=== PATIENT | female | born 1990 | race Caucasian/White ===

== ENCOUNTER 2016-10-27 14:24 | Emergency (ER) | payer OTHER, SELFPAY ==
[2016-10-27] MEDS ORDERED: TORAdol 30 mg Injection IM ONE (14:44)
[2016-10-27] MEDS ORDERED: NORCO 5/325 MG PO ONE (14:44)
[2016-10-27] MEDS ORDERED: Augmentin 875-125 Tablet PO ONE (14:44)
--- NOTE | 2016-10-27 14:50 | ERPHSYRPT ---
- History of Present Illness Time Seen by Provider: 10/27/16 14:40 Source: patient Exam Limitations: no limitations Physician History: 26 y/o female comes to the ER with a 2 day history of left upper tooth pain with swelling of the jaw for the past 2 days. Pt describes the pain as sharp, constant, 10/10, with radiation up the jaw and not relieved by tylenol and ibuprofen. Pt denies any fever or chills. Timing/Duration: gradual onset Severity: severe ENT Location: dental Prearrival Treatment: over the counter meds Modifying Factors: Improves With: nothing Allergies/Adverse Reactions: No Known Drug Allergies Allergy (Verified 05/27/16 11:58) Home Medications: Buspirone HCl [Buspar] 10 mg PO TID 05/27/16 [History] Cetirizine HCl [Zyrtec] 10 mg PO DAILY 05/27/16 [History] Hx Tetanus, Diphtheria Vaccination/Date Given: Yes (unknown) Hx Influenza Vaccination/Date Given: No Hx Pneumococcal Vaccination/Date Given: No - Review of Systems Constitutional: No Fever, No Chills Eyes: No Symptoms Ears, Nose, & Throat: No Symptoms, Mouth Pain, Painful Swallowing Respiratory: No Cough, No Dyspnea Cardiac: No Chest Pain, No Edema, No Syncope Abdominal/Gastrointestinal: No Abdominal Pain, No Nausea, No Vomiting, No Diarrhea Genitourinary Symptoms: No Dysuria Musculoskeletal: No Back Pain, No Neck Pain Skin: No Rash Neurological: No Dizziness, No Focal Weakness, No Sensory Changes Psychological: No Symptoms Endocrine: No Symptoms All Other Systems: Reviewed and Negative - Past Medical History Pertinent Past Medical History: Yes Neurological History: No Pertinent History ENT History: No Pertinent History Cardiac History: No Pertinent History Respiratory History: Asthma Endocrine Medical History: No Pertinent History Musculoskeletal History: No Pertinent History GI Medical History: GERD History: No Pertinent History Psycho-Social History: Bipolar Female Reproductive Disorders: No Pertinent History - Past Surgical History Past Surgical History: Yes Neuro Surgical History: No Pertinent History Cardiac: No Pertinent History Respiratory: No Pertinent History Gastrointestinal: No Pertinent History Genitourinary: No Pertinent History Musculoskeletal: No Pertinent History Female Surgical History: Lumpectomy - Social History Smoking Status: Never smoker Exposure to second hand smoke: No Drug Use: none Patient Lives Alone: No - Female History Hx Now: No - Physical Exam General Appearance: no apparent distress, alert Eye Exam: bilateral eye: PERRL, EOMI Nasal Exam: normal inspection Throat Exam: pharynx normal, dental tenderness, mandibular swelling, moist mucus membranes, No tonsillar exudate Neck Exam: supple Cardiovascular/Respiratory Exam: normal breath sounds, regular rate/rhythm Abdominal Exam: non-tender, soft Neurologic Exam: alert, oriented x 3, sensation nml, No motor deficits Skin Exam: normal color, warm, dry Ordered Tests: Medication Summary Generic Name Dose Route Start Last Admin Trade Name Freq PRN Reason Stop Dose Admin Acetaminophen/Hydrocodone Bitart 1 tab 10/27/16 14:44 [place] 5/325 Mg PO 10/27/16 14:45 STAT ONE Amoxicillin/Clavulanate Potassium 875 mg 10/27/16 14:44 Augmentin 875-125 Tablet PO 10/27/16 14:45 STAT ONE Ketorolac Tromethamine 60 mg 10/27/16 14:44 Toradol 30 Mg Injection IM 10/27/16 14:45 STAT ONE - Progress Progress: improved Progress Note: 10/27/16 14:47 Pt will be d/c home on toradol, norco and augmentin for tooth infection - Departure Time of Disposition: 14:47 Departure Disposition: Home Clinical Impression: Tooth infection Condition: Stable Critical Care Time: No Instructions: Tooth Decay Additional Instructions: Follow up with your dentist on Sunday for further management. Prescriptions: Hydrocodone Bit/Acetaminophen [[place] 5-325 Tablet] 1 each PO Q6H PRN PRN #10 tablet PRN Reason: Severe Pain Ketorolac Tromethamine [Toradol] 10 mg PO Q6H PRN PRN #20 tablet PRN Reason: Pain Amoxicillin/Potassium Clav [Augmentin 875-125 Tablet] 875 mg PO BID #19 tablet
[2016-10-27] MEDS ORDERED: TORAdol 30 mg Injection ONE (14:58)
[2016-10-27] MEDS ORDERED: Augmentin 875-125 Tablet ONE (14:58)
[2016-10-27] MEDS ORDERED: NORCO 5/325 MG ONE (14:59)
[2016-10-27 15:18] VITALS: BP 127/70; PULSE 76; O2SAT 100
== END 2016-10-27 15:18 | disposition home or self-care (01) ==
LOC: ED 14:24
DX: K04.7 Periapical abscess without sinus (principal)
CPT/HCPCS: 96372; 99283; J1885

== ENCOUNTER 2016-10-28 11:19 | Emergency (ER) | payer OTHER, SELFPAY ==
[2016-10-28] MEDS ORDERED: TORAdol 30 mg Injection IM ONE (11:38)
--- NOTE | 2016-10-28 11:38 | ERPHSYRPT ---
- History of Present Illness Time Seen by Provider: 10/28/16 11:35 Source: patient Exam Limitations: no limitations Patient Subjective Stated Complaint: patient had tooth pulled having pain Triage Nursing Assessment: delta went to dentist thisd morning had tooth pulled and doctor didn ot give her anything shes in extreme pain Physician History: patient had tooth pulled having pain, swollen left side of jaw Timing/Duration: today Severity: moderate Associated Symptoms: denies symptoms Allergies/Adverse Reactions: No Known Drug Allergies Allergy (Verified 10/27/16 14:46) Home Medications: Buspirone HCl [Buspar] 10 mg PO TID 05/27/16 [History] Cetirizine HCl [Zyrtec] 10 mg PO DAILY 05/27/16 [History] Hx Tetanus, Diphtheria Vaccination/Date Given: Yes Hx Influenza Vaccination/Date Given: No Hx Pneumococcal Vaccination/Date Given: No Immunizations Up to Date: Yes - Review of Systems Constitutional: No Symptoms Eyes: No Symptoms Ears, Nose, & Throat: Mouth Pain Respiratory: No Symptoms Cardiac: No Symptoms - Past Medical History Pertinent Past Medical History: Yes Neurological History: No Pertinent History ENT History: No Pertinent History Cardiac History: No Pertinent History Respiratory History: Asthma Endocrine Medical History: No Pertinent History Musculoskeletal History: No Pertinent History GI Medical History: GERD History: No Pertinent History Psycho-Social History: Bipolar Female Reproductive Disorders: No Pertinent History - Past Surgical History Past Surgical History: Yes Neuro Surgical History: No Pertinent History Cardiac: No Pertinent History Respiratory: No Pertinent History Gastrointestinal: No Pertinent History Genitourinary: No Pertinent History Musculoskeletal: No Pertinent History Female Surgical History: Lumpectomy - Social History Smoking Status: Never smoker Exposure to second hand smoke: No Drug Use: none Patient Lives Alone: No - Female History Hx Now: No - Nursing Vital Signs Nursing Vital Signs: Initial Vital Signs Temperature 97.7 F Temperature Source Oral Pulse Rate 108 Respiratory Rate 20 Blood Pressure [99] 142/90 Pain Intensity 10 - Physical Exam General Appearance: no apparent distress Eye Exam: PERRL/EOMI Ears, Nose, Throat Exam: moist mucous membranes, other (swollen left side jaw) SpO2: 99 Oxygen Delivery: Room Air - Course Nursing assessment & vital signs reviewed: Yes - Progress Progress: improved, pain not gone completely Counseled pt/family regarding: diagnosis, need for follow-up - Departure Time of Disposition: 11:37 Departure Disposition: Home Clinical Impression: Tooth infection Condition: Stable Critical Care Time: No Referrals: REINA CHERRY MD [Primary Care Provider] - CEASAR WILKINSON DDS [NON-STAFF PHY W/O PRIVILEGES] - Additional Instructions: Please follow the instructions given to you. Please take your medication as prescribed if given. If symptoms recur or get worse, come back to the emergency room if you cannot reach your primary care physician, or call your primary care physician for an appointment. Again if your symptoms get worse, come back to the emergency room. Thanks for visiting emergency room, and let us take care of you. Prescriptions: Naproxen 375 mg [Naprosyn 375 mg] 375 mg PO Q8H #30 tablet
[2016-10-28] MEDS ORDERED: TORAdol 30 mg Injection ONE (11:39)
[2016-10-28 11:48] VITALS: BP 147/80; PULSE 89; O2SAT 100
== END 2016-10-28 11:48 | disposition home or self-care (01) ==
LOC: ED 11:19
DX: K04.7 Periapical abscess without sinus (principal)
CPT/HCPCS: 96372; 99282; J1885

== ENCOUNTER 2017-08-09 10:40 | Emergency (ER) | payer OTHER, SELFPAY ==
[2017-08-09] MEDS ORDERED: MOTRIN 600 MG PO ONE (11:01)
[2017-08-09] MEDS ORDERED: Adacel Vial IM ONE ×2 (11:01→11:08)
[2017-08-09] MEDS ORDERED: MOTRIN 600 MG ONE (11:05)
--- NOTE | 2017-08-09 11:11 | ERPHSYRPT ---
- History of Present Illness Time Seen by Provider: 08/09/17 10:55 Source: patient Exam Limitations: clinical condition Patient Subjective Stated Complaint: pt here for smashing right 2,3,4 digit in door today. Triage Nursing Assessment: pt has swelling to 2,3 digit, and bleeding to 2 nail bed . pt has strong radial pulse, nailbeds pink Physician History: Patient states her right hand was closed in a door sustaining crush injuries to her right index, middle and ring fingers, associated with pain, swelling and bruising, and limited range of motion of fingers. Occurred: just prior to arrival Method of Injury: direct blow Quality: constant Severity of Pain-Max: moderate Extremities Pain Location: 2nd finger: right, 3rd finger: right, 4th finger: right Modifying Factors: Improves With: movement Associated Symptoms: none Allergies/Adverse Reactions: No Known Drug Allergies Allergy (Verified 10/27/16 14:46) Home Medications: Buspirone HCl [Buspar] 10 mg PO TID 05/27/16 [History] Escitalopram Oxalate 10 mg [Lexapro 10 MG] 10 mg DAILY 08/09/17 [History] Norgestrel-Ethinyl Estradiol [Low-Ogestrel] 1 ea DAILY 08/09/17 [History] Hx Tetanus, Diphtheria Vaccination/Date Given: No Hx Influenza Vaccination/Date Given: No Hx Pneumococcal Vaccination/Date Given: No Immunizations Up to Date: Yes - Review of Systems Constitutional: No Fever, No Chills Musculoskeletal: Injury, Joint Pain, Joint Swelling Skin: No Rash Psychological: No Symptoms Endocrine: No Symptoms - Past Medical History Pertinent Past Medical History: Yes Neurological History: No Pertinent History ENT History: No Pertinent History Cardiac History: No Pertinent History Respiratory History: Asthma Endocrine Medical History: No Pertinent History Musculoskeletal History: No Pertinent History GI Medical History: GERD History: No Pertinent History Psycho-Social History: Anxiety, Bipolar, Depression, Other Female Reproductive Disorders: No Pertinent History - Past Surgical History Past Surgical History: Yes Neuro Surgical History: No Pertinent History Cardiac: No Pertinent History Respiratory: No Pertinent History Gastrointestinal: No Pertinent History Genitourinary: No Pertinent History Musculoskeletal: No Pertinent History Female Surgical History: Lumpectomy, Other - Social History Smoking Status: Current every day smoker Exposure to second hand smoke: Yes Drug Use: none Patient Lives Alone: No - Female History Hx Last Menstrual Period: now Hx Now: No - Nursing Vital Signs Nursing Vital Signs: Initial Vital Signs Temperature 97.8 F 08/09/17 10:47 Pulse Rate 114 H 08/09/17 10:47 Respiratory Rate 20 08/09/17 10:47 Blood Pressure 144/66 08/09/17 10:47 O2 Sat by Pulse Oximetry 98 08/09/17 10:47 Pain Scale Pain Intensity 8 - Physical Exam General Appearance: alert Wrist Exam: limited ROM, pain (RIGHT INDEX FINGER FROM MCP JOINT OF INDEX FINGER , TENDERNESS WITH SWELLING MIDDLE AND DISTAL PHALANGX, TENDERNESS DISTAL PHALANGX RIGHT RING FINGER), soft tissue tenderness, swelling (THERE IS MARKED TENDERNESS VOLAR ASPECT DISTAL PHALANGX OF THE RIGHT MIDDLE FINGER) Neuro/Tendon Exam: normal sensation, normal motor functions SpO2 Interpretation: normal SpO2: 98 Oxygen Delivery: Room Air - Radiology Exams Right Hand X-ray Interpretation: Interpreted by me (COMMINUTED FRACTURE TUFF, DISTAL PHALANGX OF RIGHT MIDDLE FINGER) Ordered Tests: Active Orders 24 hr Category Date Time Status HAND (MINIMUM 3 VIEWS) Stat Exams 08/09/17 11:00 Completed Medication Summary Discontinued Medications Generic Name Dose Route Start Last Admin Trade Name Freq PRN Reason Stop Dose Admin Diphtheria/Tetanus/Acell Pertussis 0.5 ml 08/09/17 11:01 08/09/17 11:07 Adacel Vial IM 08/09/17 11:02 0.5 ml .ONCE ONE Administration Diphtheria/Tetanus/Acell Pertussis Confirm 08/09/17 11:08 Adacel Vial Administered 08/09/17 11:09 Dose 0.5 ml IM .STK-MED ONE Ibuprofen 600 mg 08/09/17 11:01 08/09/17 11:06 Motrin 600 Mg PO 08/09/17 11:02 600 mg STAT ONE Administration Ibuprofen Confirm 08/09/17 11:05 Motrin 600 Mg Administered 08/09/17 11:06 Dose 600 mg .ROUTE .STK-MED ONE - Progress Progress: pain not gone completely Progress Note: 08/09/17 11:31 ADMINISTERED MOTRIN 600MG ORALLY, ALUMINUM SPLINT PLACED OVER RIGHT MIDDLE FINGER Discussed with Dr.: Don (DISCUSSED WITH DR DON AT 1156 FOR OFFICE FOLLOWUP ON AUG 14, 2017) Counseled pt/family regarding: diagnosis, need for follow-up, rad results - Departure Time of Disposition: 12:05 Departure Disposition: Home Clinical Impression: COMMINUTED FRACTUE RIGHT MIDDLE FINGER, CONTUSION/STRAIN RIGHT INDEX/RING FINGER Condition: Stable Critical Care Time: No Referrals: REINA CHERRY MD [Primary Care Provider] - Additional Instructions: MAINTAIN ALUMINUM SPLINT OVER MIDDLE FINGER UNTIL EVALUATED BY ORTHOPEDIC SURGEON. APPLY ICE ABOVE AND BELOW FINGER EVERY 4 HOURS, DURATION OF 40 MINUTES FOR 48 HOURS. NORCO 10/325 EVERY 4 HOURS FOR PAIN DISCOMFORT. CALL DR DON'S OFFICE TODAY FOR SCHEDULED APPOINTMENT ON AUG 14, 2017. Prescriptions: Hydrocodone/APAP 10/325 mg [[place] 10/325 MG Tablet] 1 tab PO Q4H PRN PRN # 20 tablet PRN Reason: Pain
--- NOTE | 2017-08-09 11:26 | XRAY ---
Indication: Second/third finger crush injury. Comparison: None 3 views of the right hand demonstrates nondisplaced slightly comminuted third tuft fracture. No other bony, articular, or soft tissue abnormalities.
[2017-08-09 12:18] VITALS: BP 140/90; PULSE 88; O2SAT 97
== END 2017-08-09 12:24 | disposition home or self-care (01) ==
LOC: ED 10:40
DX: S62.602A Fracture of unspecified phalanx of right middle finger, initial encounter for closed fracture (principal); S60.021A Contusion of right index finger without damage to nail, initial encounter; S60.041A Contusion of right ring finger without damage to nail, initial encounter; W23.0XXA Caught, crushed, jammed, or pinched between moving objects, initial encounter
CPT/HCPCS: 73130; 90471; 90715; 99284; A9270-GY

== ENCOUNTER 2017-08-24 16:56 | Emergency (ER) | payer OTHER, SELFPAY ==
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
[2017-08-24 18:02] LABS: BASOPHIL % 0.4 % (0.0-0.4); Eosinophil % 4.8 % (0.00-5.0); Granulocytes % 58.9 % (36.0-66.0); Lymphocytes % 25.3 % (24.0-44.0); Mean Cell Volume 85.4 fl (78-100); Mean Corpuscular Hemoglobin 28.3 pg (26-32); Monocytes % 10.6 % (0.0-12.0); Platelet Count 363 K/mm3 (150-450); Red Blood Count 4.74 M/mm3 (4.1-5.4); Red Cell Distribution Width 14.5 % (11.5-14.0); White Blood Count 7.5 K/mm3 (4.0-10.5)
[2017-08-24 18:14] LABS: ADD URINE CULTURE? NO (NO); Bilirubin NEGATIVE (NEGATIVE); Blood NEGATIVE Ery/ul (0-5); COMPLETE URINE MICROSCOPIC? NO; Collection Type CCMS; Glucose NEGATIVE (NEGATIVE); Leukocyte Esterase NEGATIVE (NEGATIVE)
[2017-08-24 18:27] LABS: ACETAMINOPHEN < 2.0 ug/ml (10-30); ALBUMIN 3.7 g/dL (3.4-5.0); ALKALINE PHOSPHATASE 84 U/L (46-116); ANION GAP 13.8 MEQ/L (5-15); BLOOD UREA NITROGEN 7 mg/dL (9-20); CHLORIDE 104 mEq/L (98-107); Carbon Dioxide 29.7 mEq/L (21-32); ETHYL ALCOHOL < 0.010 % (0.00-0.01); Glucose 90 MG/DL (70-110); Potassium 3.5 mEq/L (3.5-5.1); SGOT/AST 13 U/L (15-37); SGPT/ALT 20 U/L (12-78); SODIUM 144 mEq/L (136-145); Total Protein 7.3 gm/dL (6.4-8.2)
[2017-08-24 22:49] VITALS: O2SAT 98
[2017-08-25 00:38] VITALS: BP 101/63; PULSE 60
== END 2017-08-25 00:35 ==
LOC: ED 16:56
DX: R45.851 Suicidal ideations (principal); R45.850 Homicidal ideations; F43.10 Post-traumatic stress disorder, unspecified
CPT/HCPCS: 36415; 80053; 80307; 81002; 84703; 85025; 99283; 99285; G0481

== ENCOUNTER 2017-11-16 08:11 | Emergency (ER) | payer OTHER ==
[2017-11-16] MEDS ORDERED: PROVENTIL 2.5 MG/3 ML NEB IH ONE ×2 (08:27→08:30)
[2017-11-16] MEDS ORDERED: MOTRIN 600 MG PO ONE (08:27)
[2017-11-16] MEDS ORDERED: Vistaril 50 MG/ML IM ONE (08:34)
--- NOTE | 2017-11-16 08:37 | ERPHSYRPT ---
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 pt arrives p/w/d resp easy and non labored. bbs cta slight tightness noted BUL Physician History: CC: flu Hx: 27 y/o patient of Dr Cherry with hx of mild asthma and anxiety. She has 2 day hx of cough, congestion, bone aches, myalgias, fever, chills. No dyspnea. Has alb MDI but has not used it yet. Tried nyquil this AM. Social: Kids 7,10 at home. Surg: Bilateral salpingectomy. Timing/Duration: day(s) (2) Allergies/Adverse Reactions: banana Allergy (Verified 08/24/17 17:17) pesticide Allergy (Verified 08/24/17 17:17) Home Medications: Buspirone HCl [Buspar] 30 mg PO TID 05/27/16 [History] Escitalopram Oxalate 10 mg [Lexapro 10 MG] 10 mg DAILY 08/09/17 [History] Hx Tetanus, Diphtheria Vaccination/Date Given: No Hx Influenza Vaccination/Date Given: Yes Hx Pneumococcal Vaccination/Date Given: No - Review of Systems Constitutional: Fever, Chills Eyes: No Symptoms Ears, Nose, & Throat: Nose Congestion Respiratory: Cough Cardiac: No Chest Pain Abdominal/Gastrointestinal: No Abdominal Pain, No Nausea, No Vomiting Genitourinary Symptoms: No Dysuria Musculoskeletal: Myalgias Skin: No Rash Neurological: Headache All Other Systems: Reviewed and Negative - Past Medical History Pertinent Past Medical History: Yes Neurological History: No Pertinent History ENT History: No Pertinent History Cardiac History: No Pertinent History Respiratory History: Asthma Endocrine Medical History: No Pertinent History Musculoskeletal History: No Pertinent History GI Medical History: GERD History: No Pertinent History Psycho-Social History: Anxiety, Bipolar, Depression, Other Female Reproductive Disorders: No Pertinent History Other Medical History: ptsd - Past Surgical History Past Surgical History: Yes Neuro Surgical History: No Pertinent History Cardiac: No Pertinent History Respiratory: No Pertinent History Gastrointestinal: No Pertinent History Genitourinary: No Pertinent History Musculoskeletal: No Pertinent History Female Surgical History: Lumpectomy, Other Other Surgical History: fallopian tubes removed - Social History Smoking Status: Current every day smoker How long have you smoked: 3 Exposure to second hand smoke: Yes Drug Use: none Patient Lives Alone: No - Female History Hx Last Menstrual Period: 11/11/17 Hx Now: No - Nursing Vital Signs Nursing Vital Signs: Initial Vital Signs Temperature 98.4 F 11/16/17 08:19 Pulse Rate 96 H 11/16/17 08:19 Respiratory Rate 18 11/16/17 08:19 Blood Pressure 139/84 11/16/17 08:19 O2 Sat by Pulse Oximetry 98 11/16/17 08:19 Pain Scale Pain Intensity 6 - Physical Exam General Appearance: alert Eye Exam: PERRL/EOMI Ears, Nose, Throat Exam: normal ENT inspection, moist mucous membranes Neck Exam: normal inspection, non-tender, supple Respiratory Exam: normal breath sounds, lungs clear, No respiratory distress, No wheezing Cardiovascular Exam: regular rate/rhythm Gastrointestinal/Abdomen Exam: soft, No tenderness, No distention Back Exam: normal inspection Extremity Exam: normal inspection, normal range of motion Neurologic Exam: alert, oriented x 3, cooperative, sensation nml, No motor deficits Skin Exam: warm, dry, No rash SpO2 Interpretation: normal SpO2: 98 Oxygen Delivery: Room Air - Course Nursing assessment & vital signs reviewed: Yes Ordered Tests: Active Orders 24 hr Category Date Time Status Respiratory Nebulizer STAT RT 11/16/17 08:28 Active Medication Summary Discontinued Medications Generic Name Dose Route Start Last Admin Trade Name Freq PRN Reason Stop Dose Admin Albuterol Sulfate 2.5 mg 11/16/17 08:27 Proventil 2.5 Mg/3 Ml Neb IH 11/16/17 08:28 STAT ONE Ibuprofen 600 mg 11/16/17 08:27 Motrin 600 Mg PO 11/16/17 08:28 STAT ONE - Progress Progress Note: 11/16/17 08:34 She has influenza like illness, likely flu. She is stable. Lungs clear. Discussed tamiflu pros and cons and she declines due to sick greater than 48 hours and possible side effects. Symptom treatment encouraged. Counseled pt/family regarding: diagnosis, need for follow-up - Departure Time of Disposition: 08:35 Departure Disposition: Home Clinical Impression: Influenza-like illness Condition: Stable Critical Care Time: No Referrals: REINA CHERRY MD [Primary Care Provider] - Instructions: Cough, Adult (DC), Flu, Adult (DC) Additional Instructions: Use your albuterol MDI every 4 hours as directed. Rx ibuprofen for fever/discomfort. Push oral fluids. Prescriptions: Ibuprofen 600 mg PO Q6H PRN PRN #20 tablet PRN Reason: Pain
[2017-11-16] MEDS ORDERED: VISTARIL 100MG/2ML IM ONE (08:38)
[2017-11-16] MEDS ORDERED: MOTRIN 600 MG ONE (08:39)
[2017-11-16 08:40] VITALS: O2SAT 98
[2017-11-16 09:11] VITALS: BP 131/78; PULSE 70
== END 2017-11-16 09:11 | disposition home or self-care (01) ==
LOC: ED 08:11
DX: J11.1 Influenza due to unidentified influenza virus with other respiratory manifestations (principal)
CPT/HCPCS: 94150; 94640; 96372; 99283; 99284; J3410; A9270-GY

== ENCOUNTER 2017-12-24 03:31 | Emergency (ER) | payer OTHER ==
[2017-12-24 03:43] VITALS: BP 126/85; PULSE 117
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
[2017-12-24 03:58] VITALS: O2SAT 99
== END 2017-12-24 03:55 | disposition left against medical advice (07) ==
LOC: ED 03:31
DX: F45.8 Other somatoform disorders (principal)
CPT/HCPCS: 99281

== ENCOUNTER 2018-12-26 03:23 | Emergency (ER) | payer OTHER ==
--- NOTE | 2018-12-26 03:53 | ERPHSYRPT ---
<MATTHEW BLISS - Last Filed: 12/26/18 07:00> - History of Present Illness Time Seen by Provider: 12/26/18 03:43 Historian: patient, EMS Exam Limitations: no limitations Patient Subjective Stated Complaint: Pt states that she took half of a brown pill that was given to her by a friend to help her sleep. Reports that she is now experiencing chest pain and tightness and states that when she closes her eyes, she feels like she is going to pass out. Triage Nursing Assessment: Pt alert and oriented x 3. Skin color normal for race. Lung sounds clear anterior bilateral throughout. Heart sounds regular. S1 , S2 present. Physician History: Pt apparently took 150 mg Oxcarbazepine before started c/o left sided chest pain , and mild SOB in fdc, nauseated, but denies vomiting, no fever, chills, productive cough, other complaints. Timing/Duration: today, hour(s) (1.5) Activities at Onset: none Quality: sharpness Location: other (left chest) Chest Pain Radiation: no radiation Severity of Pain-Max: severe Severity of Pain-Current: severe Modifying Factors: Improves With: breathing, coughing Associated Symptoms: nausea, shortness of breath, dizziness Prior Chest Pain/Cardiac Workup: no prior chest pain Nitro Today/Relief: no nitro taken today Aspirin Treatment Today: no aspirin today Allergies/Adverse Reactions: banana Allergy (Verified 08/24/17 17:17) melon Allergy (Verified 12/26/18 03:38) nut - unspecified Allergy (Verified 12/26/18 03:38) pesticide Allergy (Verified 08/24/17 17:17) Home Medications: Clindamycin HCl 600 mg PO BID 12/26/18 [History] Smz/Tmp Ds Tablet [Bactrim Ds Tablet] 1 tab PO BID 12/26/18 [History] Hx Tetanus, Diphtheria Vaccination/Date Given: Yes Hx Influenza Vaccination/Date Given: Yes Hx Pneumococcal Vaccination/Date Given: No Immunizations Up to Date: Yes - Review of Systems Constitutional: No Symptoms Ears, Nose, & Throat: No Symptoms Respiratory: Cough, Dyspnea Cardiac: Chest Pain, No Edema Abdominal/Gastrointestinal: Nausea Genitourinary Symptoms: No Symptoms Musculoskeletal: No Symptoms Skin: No Symptoms Neurological: Dizziness Psychological: Anxiety Immunological/Allergic: No Symptoms - Past Medical History Pertinent Past Medical History: Yes Neurological History: No Pertinent History ENT History: No Pertinent History Cardiac History: No Pertinent History Respiratory History: Asthma Endocrine Medical History: No Pertinent History Musculoskeletal History: No Pertinent History GI Medical History: GERD History: No Pertinent History Psycho-Social History: Anxiety, Bipolar, Depression, Other Female Reproductive Disorders: No Pertinent History Other Medical History: ptsd - Past Surgical History Past Surgical History: Yes Neuro Surgical History: No Pertinent History Cardiac: No Pertinent History Respiratory: No Pertinent History Gastrointestinal: No Pertinent History Genitourinary: No Pertinent History Musculoskeletal: No Pertinent History Female Surgical History: Lumpectomy, Other Other Surgical History: fallopian tubes removed - Social History Smoking Status: Current every day smoker How long have you smoked: 6 years Exposure to second hand smoke: Yes Drug Use: marijuana, methamphetamines Patient Lives Alone: No - Female History Hx Last Menstrual Period: 12/26/18 Hx Now: No - Nursing Vital Signs Nursing Vital Signs: Initial Vital Signs Temperature 98.8 F 12/26/18 03:27 Pulse Rate 97 H 12/26/18 03:27 Respiratory Rate 16 12/26/18 03:27 Blood Pressure 139/85 12/26/18 03:27 O2 Sat by Pulse Oximetry 100 12/26/18 03:27 Pain Scale Pain Intensity 0 - Physical Exam General Appearance: no apparent distress Eye Exam: PERRL/EOMI, eyes nml inspection Ears, Nose, Throat Exam: normal ENT inspection, pharynx normal, moist mucous membranes Neck Exam: normal inspection, non-tender, supple, No carotid bruit, No JVD Respiratory Exam: normal breath sounds, chest tenderness, lungs clear, airway intact, other (left anterior chest, no bruises) Cardiovascular Exam: regular rate/rhythm, normal heart sounds, normal peripheral pulses, capillary refill <2 sec, No murmur Gastrointestinal/Abdomen Exam: soft, normal bowel sounds, No tenderness, No distention, No mass, No guarding, No ecchymosis, No rebound, No organomegaly Extremity Exam: normal inspection, No calf tenderness, No letty's sign Neurologic Exam: alert, oriented x 3, cooperative, normal mood/affect Skin Exam: normal color, warm, dry, No rash Lymphatic Exam: No adenopathy SpO2 Interpretation: normal SpO2: 100 O2 Delivery: Room Air - Course Nursing assessment & vital signs reviewed: Yes EKG Interpreted by Me: RATE (97/min), NORMAL AXIS, NORMAL INTERVALS, NORMAL QRS , Non-specific ST Changes Ordered Tests: Active Orders 24 hr Category Date Time Status Surgical Instrument Mechanic STAT Care 12/26/18 03:46 Active EKG-ER Only STAT Care 12/26/18 03:44 Active EKG-ER Only STAT Care 12/26/18 06:34 Active IV Insertion STAT Care 12/26/18 03:44 Active Pulse Oximetry (ED) STAT Care 12/26/18 03:44 Active CHEST 1 VIEW (PORTABLE) Stat Exams 12/26/18 03:46 Taken CHEST WITH CONTRAST [CT] Stat Exams 12/26/18 05:22 Taken CBC W DIFF Stat Lab 12/26/18 04:10 Completed CK-Creatinine Phosphokinase Stat Lab 12/26/18 04:10 Completed CMP Stat Lab 12/26/18 04:10 Completed D-DIMER QUANTITATION Stat Lab 12/26/18 04:10 Completed HCG,QUALITATIVE URINE Stat Lab 12/26/18 04:30 Completed LIPASE Stat Lab 12/26/18 04:10 Completed MAGNESIUM Stat Lab 12/26/18 04:10 Completed NT PRO BNP Stat Lab 12/26/18 04:10 Completed PROTIME WITH INR Stat Lab 12/26/18 04:10 Completed PTT Stat Lab 12/26/18 04:10 Completed TROPONIN Q3H Lab 12/26/18 04:10 Completed TROPONIN Q3H Lab 12/26/18 07:00 Completed TROPONIN Q3H Lab 12/26/18 10:00 Ordered TROPONIN Q3H Lab 12/26/18 13:00 Ordered TROPONIN Q3H Lab 12/26/18 16:00 Ordered Urine Triage Profile Stat Lab 12/26/18 04:30 Completed Lab/Rad Data: Laboratory Result Diagrams 12/26/18 04:10 12/26/18 04:10 Laboratory Results 12/26/18 12/26/18 12/26/18 Range/Units 07:00 04:30 04:30 WBC (4.0-10.5) K/mm3 RBC (4.1-5.4) M/mm3 Hgb (12.0-16.0) gm/dl Hct (35-47) % MCV (78-100) fl MCH (26-32) pg MCHC (32-36) g/dl RDW (11.5-14.0) % Plt Count (150-450) K/mm3 MPV (6-9.5) fl Gran % (36.0-66.0) % Eos # (Auto) (0-0.5) Absolute Lymphs (auto) (1.0-4.6) Absolute Monos (auto) (0.0-1.3) Lymphocytes % (24.0-44.0) % Monocytes % (0.0-12.0) % Eosinophils % (0.00-5.0) % Basophils % (0.0-0.4) % Absolute Granulocytes (1.4-6.9) Basophils # (0-0.4) PT (9.95-12.35) SECONDS INR (0.8-3.0) APTT (25.3-37.0) SECONDS D-Dimer (215-500) ng/mL Sodium (137-145) mmol/L Potassium (3.5-5.1) mmol/L Chloride (98-107) mmol/L Carbon Dioxide (22-30) mmol/L Anion Gap (5-15) MEQ/L BUN (7-17) mg/dL Creatinine (0.52-1.04) mg/dL Estimated GFR ML/MIN Glucose (74-106) mg/dL Calcium (8.4-10.2) mg/dL Magnesium (1.6-2.3) mg/dL Total Bilirubin (0.2-1.3) mg/dL AST (14-36) U/L ALT (0-35) U/L Alkaline Phosphatase (38-126) U/L Creatine Kinase (30-135) U/L Troponin I < 0.012 (0.000-0.034) ng/mL NT-Pro-B Natriuret Pep (0-450) pg/mL Serum Total Protein (6.3-8.2) g/dL Albumin (3.5-5.0) g/dL Lipase (23-300) U/L Urine HCG, Qual NEGATIVE (Negative) Urine Opiates Level NEGATIVE (NEGATIVE) Ur Methadone NEGATIVE (NEGATIVE) Urine Barbiturates NEGATIVE (NEGATIVE) Ur Phencyclidine (PCP) NEGATIVE (NEGATIVE) Urine Amphetamine NEGATIVE (NEGATIVE) U Benzodiazepine Level NEGATIVE (NEGATIVE) Urine Cocaine NEGATIVE (NEGATIVE) Urine Marijuana (THC) POSITIVE (NEGATIVE) 03/12/26/18 12/26/18 Range/Units 04:10 04:10 04:10 WBC (4.0-10.5) K/mm3 RBC (4.1-5.4) M/mm3 Hgb (12.0-16.0) gm/dl Hct (35-47) % MCV (78-100) fl MCH (26-32) pg MCHC (32-36) g/dl RDW (11.5-14.0) % Plt Count (150-450) K/mm3 MPV (6-9.5) fl Gran % (36.0-66.0) % Eos # (Auto) (0-0.5) Absolute Lymphs (auto) (1.0-4.6) Absolute Monos (auto) (0.0-1.3) Lymphocytes % (24.0-44.0) % Monocytes % (0.0-12.0) % Eosinophils % (0.00-5.0) % Basophils % (0.0-0.4) % Absolute Granulocytes (1.4-6.9) Basophils # (0-0.4) PT 12.1 (9.95-12.35) SECONDS INR 1.04 (0.8-3.0) APTT 30.8 (25.3-37.0) SECONDS D-Dimer 1251 H* (215-500) ng/mL Sodium 138 (137-145) mmol/L Potassium 4.5 (3.5-5.1) mmol/L Chloride 103 (98-107) mmol/L Carbon Dioxide 25 (22-30) mmol/L Anion Gap 13.5 (5-15) MEQ/L BUN 7 (7-17) mg/dL Creatinine 0.59 (0.52-1.04) mg/dL Estimated GFR > 60.0 ML/MIN Glucose 94 (74-106) mg/dL Calcium 9.4 (8.4-10.2) mg/dL Magnesium 2.1 (1.6-2.3) mg/dL Total Bilirubin 0.30 (0.2-1.3) mg/dL AST 16 (14-36) U/L ALT 18 (0-35) U/L Alkaline Phosphatase 87 (38-126) U/L Creatine Kinase 24 L (30-135) U/L Troponin I < 0.012 (0.000-0.034) ng/mL NT-Pro-B Natriuret Pep 34.4 (0-450) pg/mL Serum Total Protein 7.4 (6.3-8.2) g/dL Albumin 3.9 (3.5-5.0) g/dL Lipase 30 (23-300) U/L Urine HCG, Qual (Negative) Urine Opiates Level (NEGATIVE) Ur Methadone (NEGATIVE) Urine Barbiturates (NEGATIVE) Ur Phencyclidine (PCP) (NEGATIVE) Urine Amphetamine (NEGATIVE) U Benzodiazepine Level (NEGATIVE) Urine Cocaine (NEGATIVE) Urine Marijuana (THC) (NEGATIVE) 12/26/18 Range/Units 04:10 WBC 10.7 H (4.0-10.5) K/mm3 RBC 4.28 (4.1-5.4) M/mm3 Hgb 12.1 (12.0-16.0) gm/dl Hct 37.1 (35-47) % MCV 86.7 (78-100) fl MCH 28.3 (26-32) pg MCHC 32.6 (32-36) g/dl RDW 14.0 (11.5-14.0) % Plt Count 404 (150-450) K/mm3 MPV 8.6 (6-9.5) fl Gran % 71.1 H (36.0-66.0) % Eos # (Auto) 0.13 (0-0.5) Absolute Lymphs (auto) 1.73 (1.0-4.6) Absolute Monos (auto) 1.20 (0.0-1.3) Lymphocytes % 16.2 L (24.0-44.0) % Monocytes % 11.2 (0.0-12.0) % Eosinophils % 1.2 (0.00-5.0) % Basophils % 0.3 (0.0-0.4) % Absolute Granulocytes 7.60 H (1.4-6.9) Basophils # 0.03 (0-0.4) PT (9.95-12.35) SECONDS INR (0.8-3.0) APTT (25.3-37.0) SECONDS D-Dimer (215-500) ng/mL Sodium (137-145) mmol/L Potassium (3.5-5.1) mmol/L Chloride (98-107) mmol/L Carbon Dioxide (22-30) mmol/L Anion Gap (5-15) MEQ/L BUN (7-17) mg/dL Creatinine (0.52-1.04) mg/dL Estimated GFR ML/MIN Glucose (74-106) mg/dL Calcium (8.4-10.2) mg/dL Magnesium (1.6-2.3) mg/dL Total Bilirubin (0.2-1.3) mg/dL AST (14-36) U/L ALT (0-35) U/L Alkaline Phosphatase (38-126) U/L Creatine Kinase (30-135) U/L Troponin I (0.000-0.034) ng/mL NT-Pro-B Natriuret Pep (0-450) pg/mL Serum Total Protein (6.3-8.2) g/dL Albumin (3.5-5.0) g/dL Lipase (23-300) U/L Urine HCG, Qual (Negative) Urine Opiates Level (NEGATIVE) Ur Methadone (NEGATIVE) Urine Barbiturates (NEGATIVE) Ur Phencyclidine (PCP) (NEGATIVE) Urine Amphetamine (NEGATIVE) U Benzodiazepine Level (NEGATIVE) Urine Cocaine (NEGATIVE) Urine Marijuana (THC) (NEGATIVE) - Progress Progress: improved Air Movement: good Progress Note: 12/26/18 07:01 Pt's case was discussed with Dr Vazquez, he will follow up on her Chest CT. Blood Culture(s) Obtained: No Antibiotics given: No Counseled pt/family regarding: lab results, diagnosis, need for follow-up, rad results - Departure Time of Disposition: 07:03 Departure Disposition: Senior Living/Correction Clinical Impression: Chest pain Qualifiers: Chest pain type: unspecified Qualified Code(s): R07.9 - Chest pain, unspecified Condition: Stable Critical Care Time: No Referrals: REINA CHERRY MD [ACTIVE STAFF] - Instructions: Chest Pain (DC) Additional Instructions: follow up with outpatient physician for further management <NATI VAZQUEZ - Last Filed: 12/26/18 07:51> - Progress Progress Note: 12/26/18 07:50 cta chest-no pulm emboli; no acute process. - Departure Time of Disposition: 07:51 Departure Disposition: Senior Living/Correction
[2018-12-26 04:14] LABS: BASOPHIL % 0.3 % (0.0-0.4); Basophil (Absolute #) 0.03 (0-0.4); Eosinophil % 1.2 % (0.00-5.0); Eosinophil (Absolute #) 0.13 (0-0.5); Granulocytes % 71.1 % (36.0-66.0); Hematocrit 37.1 % (35-47); Hemoglobin 12.1 gm/dl (12.0-16.0); Lymphocyte (Absolute #) 1.73 (1.0-4.6); Lymphocytes % 16.2 % (24.0-44.0); Mean Cell Volume 86.7 fl (78-100); Mean Corpuscular Hemoglobin 28.3 pg (26-32); Mean Corpuscular Hgb Concent. 32.6 g/dl (32-36); Mean Platelet Volume 8.6 fl (6-9.5); Monocytes % 11.2 % (0.0-12.0); Platelet Count 404 K/mm3 (150-450); Red Blood Count 4.28 M/mm3 (4.1-5.4); White Blood Count 10.7 K/mm3 (4.0-10.5)
[2018-12-26 04:41] LABS: ALBUMIN 3.9 g/dL (3.5-5.0); ALKALINE PHOSPHATASE 87 U/L (38-126); ANION GAP 13.5 MEQ/L (5-15); BLOOD UREA NITROGEN 7 mg/dL (7-17); CHLORIDE 103 mmol/L (98-107); CK-Creatinine Phosphokinase 24 U/L (30-135); Calcium 9.4 mg/dL (8.4-10.2); Carbon Dioxide 25 mmol/L (22-30); Creatinine 1 0.59 mg/dL (0.52-1.04); Glucose 94 mg/dL (74-106); LIPASE 30 U/L (23-300); MAGNESIUM 2.1 mg/dL (1.6-2.3); NT PRO BNP 34.4 pg/mL (0-450); Potassium 4.5 mmol/L (3.5-5.1); SGOT/AST 16 U/L (14-36); SGPT/ALT 18 U/L (0-35); SODIUM 138 mmol/L (137-145); Total Protein 7.4 g/dL (6.3-8.2)
[2018-12-26 04:52] LABS: INR 1.04 (0.8-3.0); PROTIME 12.1 SECONDS (9.95-12.35)
[2018-12-26 04:55] LABS: PTT 30.8 SECONDS (25.3-37.0)
[2018-12-26 05:02] LABS: Amphetamine,Urine NEGATIVE (NEGATIVE); Barbiturate,Urine NEGATIVE (NEGATIVE); Benzodiazepine,Urine NEGATIVE (NEGATIVE); Cocaine,Urine NEGATIVE (NEGATIVE); Methadone,Urine NEGATIVE (NEGATIVE); Opiate,Urine NEGATIVE (NEGATIVE); PCP,Urine NEGATIVE (NEGATIVE); THC,Urine POSITIVE (NEGATIVE)
[2018-12-26 06:55] VITALS: O2SAT 100
[2018-12-26 08:03] VITALS: BP 118/80; PULSE 80
--- NOTE | 2018-12-26 09:01 | XRAY ---
Indication: Chest pain. Multiple contiguous axial images obtained through the chest using 80 cc Isovue 370 contrast and PE protocol. Comparison: None There is good opacification of the pulmonary arteries to include the lobar and segmental branches. Heart is not enlarged. Aorta is normal in course and caliber without aneurysm/dissection. Tiny precarinal calcified node. No pathologic mediastinal/hilar lymphadenopathy. Lungs are inflated with minimal bibasilar fibrosis/scarring. No suspicious pulmonary mass, infiltrate, or effusion. Bony thorax intact. Limited upper abdomen unremarkable. Impression: Negative pulmonary embolus. Remaining CT chest with contrast exam is negative. Comment: Preliminary interpretation was made by [facility]. No discrepancy. CT DI 13.33
--- NOTE | 2018-12-26 09:01 | XRAY ---
Indication: Chest pain. Comparison: May 27, 2016. Portable chest again demonstrates normal heart, lungs, and bony thorax.
== END 2018-12-26 08:01 | disposition home or self-care (01) ==
LOC: ED 03:23 → EEVIPCON 03:23 → ED 08:01
DX: R07.9 Chest pain, unspecified (principal); F31.9 Bipolar disorder, unspecified; K21.9 Gastro-esophageal reflux disease without esophagitis
CPT/HCPCS: 36415; 71045; 71260; 80053; 80307; 82550; 83690; 83735; 83880; 84484; 84703; 85025; 85379; 85610; 85730; 93005; 93041; 99284

== ENCOUNTER 2019-03-03 20:17 | Emergency (ER) | payer OTHER ==
--- NOTE | 2019-03-03 20:30 | ERPHSYRPT ---
- History of Present Illness Time Seen by Provider: 03/03/19 20:25 Source: patient, police Exam Limitations: no limitations Physician History: 28 y/o incarcerated white female presents from the shelter with complaints of high bp. had a variety of other complaints upon arrival including shaking and numbness of both her legs. she also has an umbilical hernia that is tender. Timing/Duration: today Severity: mild Associated Symptoms: abdominal pain (at umbilical hernia site), No nausea, No vomiting Allergies/Adverse Reactions: banana Allergy (Verified 03/03/19 20:29) kiwi Allergy (Verified 03/03/19 20:29) melon Allergy (Verified 03/03/19 20:29) nut - unspecified Allergy (Verified 03/03/19 20:29) pesticide Allergy (Verified 03/03/19 20:29) Hx Tetanus, Diphtheria Vaccination/Date Given: Yes Hx Influenza Vaccination/Date Given: Yes Hx Pneumococcal Vaccination/Date Given: No - Review of Systems Constitutional: No Symptoms Eyes: No Symptoms Ears, Nose, & Throat: No Symptoms Respiratory: No Symptoms Cardiac: No Symptoms Abdominal/Gastrointestinal: Abdominal Pain (mild localized at umbilical hernia site.) Genitourinary Symptoms: No Symptoms Musculoskeletal: No Symptoms Skin: No Symptoms Neurological: Parasthesia (of bilat hands and feet) Psychological: No Symptoms Endocrine: No Symptoms Hematologic/Lymphatic: No Symptoms Immunological/Allergic: No Symptoms All Other Systems: Reviewed and Negative - Past Medical History Pertinent Past Medical History: Yes Neurological History: No Pertinent History ENT History: No Pertinent History Cardiac History: No Pertinent History Respiratory History: Asthma Endocrine Medical History: No Pertinent History Musculoskeletal History: No Pertinent History GI Medical History: GERD History: No Pertinent History Psycho-Social History: Anxiety, Bipolar, Depression, Other Female Reproductive Disorders: No Pertinent History Other Medical History: ptsd - Past Surgical History Past Surgical History: Yes Neuro Surgical History: No Pertinent History Cardiac: No Pertinent History Respiratory: No Pertinent History Gastrointestinal: No Pertinent History Genitourinary: No Pertinent History Musculoskeletal: No Pertinent History Female Surgical History: Lumpectomy, Other Other Surgical History: fallopian tubes removed - Social History Smoking Status: Current every day smoker How long have you smoked: 6 years Exposure to second hand smoke: Yes Drug Use: marijuana, methamphetamines Patient Lives Alone: No - Nursing Vital Signs Nursing Vital Signs: Initial Vital Signs Temperature 98.2 F 03/03/19 20:22 Pulse Rate 102 H 03/03/19 20:22 Respiratory Rate 18 03/03/19 20:22 Blood Pressure 119/83 03/03/19 20:22 O2 Sat by Pulse Oximetry 98 03/03/19 20:22 Pain Scale Pain Intensity 4 - Physical Exam General Appearance: no apparent distress, alert, anxiety Eye Exam: PERRL/EOMI, eyes nml inspection Ears, Nose, Throat Exam: normal ENT inspection, moist mucous membranes Neck Exam: normal inspection, non-tender, supple, full range of motion Respiratory Exam: normal breath sounds, lungs clear, airway intact, No chest tenderness, No respiratory distress Cardiovascular Exam: regular rate/rhythm, normal heart sounds, normal peripheral pulses Gastrointestinal/Abdomen Exam: soft, normal bowel sounds, tenderness (mild localized tenderness at small, reducible supraumbilical hernia), hernia Pelvic Exam: not done Rectal Exam: not done Back Exam: normal inspection, normal range of motion, No CVA tenderness, No vertebral tenderness Extremity Exam: normal inspection, normal range of motion, pelvis stable Neurologic Exam: alert, oriented x 3, cooperative, sidehand II-XII nml as tested Skin Exam: normal color, warm, dry Lymphatic Exam: No adenopathy SpO2 Interpretation: normal O2 Delivery: Room Air - Course Nursing assessment & vital signs reviewed: Yes Ordered Tests: Active Orders 24 hr Category Date Time Status CBC W DIFF Stat Lab 03/03/19 20:40 Completed CMP Stat Lab 03/03/19 20:40 Completed HCG,QUALITATIVE URINE Stat Lab 03/03/19 20:52 Completed UA W/RFX UR CULTURE Stat Lab 03/03/19 20:52 Completed Urine Triage Profile Stat Lab 03/03/19 20:52 Completed Lab/Rad Data: Laboratory Result Diagrams 03/03/19 20:40 03/03/19 20:40 Laboratory Results 03/03/19 03/03/19 03/03/19 Range/Units 20:52 20:52 20:52 WBC (4.0-10.5) K/mm3 RBC (4.1-5.4) M/mm3 Hgb (12.0-16.0) gm/dl Hct (35-47) % MCV (78-100) fl MCH (26-32) pg MCHC (32-36) g/dl RDW (11.5-14.0) % Plt Count (150-450) K/mm3 MPV (6-9.5) fl Gran % (36.0-66.0) % Eos # (Auto) (0-0.5) Absolute Lymphs (auto) (1.0-4.6) Absolute Monos (auto) (0.0-1.3) Lymphocytes % (24.0-44.0) % Monocytes % (0.0-12.0) % Eosinophils % (0.00-5.0) % Basophils % (0.0-0.4) % Absolute Granulocytes (1.4-6.9) Basophils # (0-0.4) Sodium (137-145) mmol/L Potassium (3.5-5.1) mmol/L Chloride (98-107) mmol/L Carbon Dioxide (22-30) mmol/L Anion Gap (5-15) MEQ/L BUN (7-17) mg/dL Creatinine (0.52-1.04) mg/dL Estimated GFR ML/MIN Glucose (74-106) mg/dL Calcium (8.4-10.2) mg/dL Total Bilirubin (0.2-1.3) mg/dL AST (14-36) U/L ALT (0-35) U/L Alkaline Phosphatase (38-126) U/L Serum Total Protein (6.3-8.2) g/dL Albumin (3.5-5.0) g/dL Urine Color COLORLESS (YELLOW) Urine Appearance CLEAR (CLEAR) Urine pH 7.0 (5-6) Ur Specific [place] 1.002 (1.005-1.025) Urine Protein NEGATIVE (Negative) Urine Ketones NEGATIVE (NEGATIVE) Urine Blood NEGATIVE (0-5) Justino/ul Urine Nitrite NEGATIVE (NEGATIVE) Urine Bilirubin NEGATIVE (NEGATIVE) Urine Urobilinogen NEGATIVE (0-1) mg/dL Ur Leukocyte Esterase NEGATIVE (NEGATIVE) Urine WBC (Auto) 3-5 (0-5) /HPF Urine RBC (Auto) 0-2 (0-2) /HPF U Epithel Cells (Auto) RARE (FEW) /HPF Urine Bacteria (Auto) RARE (NEGATIVE) /HPF Urine Mucus (Auto) SLIGHT (NEGATIVE) /HPF Urine Culture Reflexed NO (NO) Urine Glucose NEGATIVE (NEGATIVE) mg/dL Urine HCG, Qual NEGATIVE (Negative) Urine Opiates Level NEGATIVE (NEGATIVE) Ur Methadone NEGATIVE (NEGATIVE) Urine Barbiturates NEGATIVE (NEGATIVE) Ur Phencyclidine (PCP) NEGATIVE (NEGATIVE) Urine Amphetamine NEGATIVE (NEGATIVE) U Benzodiazepine Level NEGATIVE (NEGATIVE) Urine Cocaine NEGATIVE (NEGATIVE) Urine Marijuana (THC) NEGATIVE (NEGATIVE) 03/03/19 03/03/19 Range/Units 20:40 20:40 WBC 5.7 (4.0-10.5) K/mm3 RBC 4.31 (4.1-5.4) M/mm3 Hgb 12.7 (12.0-16.0) gm/dl Hct 38.2 (35-47) % MCV 88.6 (78-100) fl MCH 29.5 (26-32) pg MCHC 33.2 (32-36) g/dl RDW 14.5 H (11.5-14.0) % Plt Count 294 (150-450) K/mm3 MPV 8.7 (6-9.5) fl Gran % 65.6 (36.0-66.0) % Eos # (Auto) 0.20 (0-0.5) Absolute Lymphs (auto) 1.29 (1.0-4.6) Absolute Monos (auto) 0.44 (0.0-1.3) Lymphocytes % 22.5 L (24.0-44.0) % Monocytes % 7.7 (0.0-12.0) % Eosinophils % 3.5 (0.00-5.0) % Basophils % 0.7 (0.0-0.4) % Absolute Granulocytes 3.76 (1.4-6.9) Basophils # 0.04 (0-0.4) Sodium 141 (137-145) mmol/L Potassium 4.7 (3.5-5.1) mmol/L Chloride 105 (98-107) mmol/L Carbon Dioxide 27 (22-30) mmol/L Anion Gap 14.2 (5-15) MEQ/L BUN 14 (7-17) mg/dL Creatinine 0.54 (0.52-1.04) mg/dL Estimated GFR > 60.0 ML/MIN Glucose 95 (74-106) mg/dL Calcium 9.5 (8.4-10.2) mg/dL Total Bilirubin 0.30 (0.2-1.3) mg/dL AST 20 (14-36) U/L ALT 18 (0-35) U/L Alkaline Phosphatase 77 (38-126) U/L Serum Total Protein 7.7 (6.3-8.2) g/dL Albumin 4.4 (3.5-5.0) g/dL Urine Color (YELLOW) Urine Appearance (CLEAR) Urine pH (5-6) Ur Specific [place] (1.005-1.025) Urine Protein (Negative) Urine Ketones (NEGATIVE) Urine Blood (0-5) Justino/ul Urine Nitrite (NEGATIVE) Urine Bilirubin (NEGATIVE) Urine Urobilinogen (0-1) mg/dL Ur Leukocyte Esterase (NEGATIVE) Urine WBC (Auto) (0-5) /HPF Urine RBC (Auto) (0-2) /HPF U Epithel Cells (Auto) (FEW) /HPF Urine Bacteria (Auto) (NEGATIVE) /HPF Urine Mucus (Auto) (NEGATIVE) /HPF Urine Culture Reflexed (NO) Urine Glucose (NEGATIVE) mg/dL Urine HCG, Qual (Negative) Urine Opiates Level (NEGATIVE) Ur Methadone (NEGATIVE) Urine Barbiturates (NEGATIVE) Ur Phencyclidine (PCP) (NEGATIVE) Urine Amphetamine (NEGATIVE) U Benzodiazepine Level (NEGATIVE) Urine Cocaine (NEGATIVE) Urine Marijuana (THC) (NEGATIVE) - Progress Progress: unchanged Counseled pt/family regarding: lab results, diagnosis, need for follow-up - Departure Departure Disposition: Senior Living/[facility] Clinical Impression: Anxiety, Umbilical hernia Condition: Stable Critical Care Time: No Referrals: JOSSELINE MARTINEZ MD [NON-STAFF PHY W/O PRIVILEGES] - Additional Instructions: follow up with primary doctor and general surgeon for further management
[2019-03-03 20:47] LABS: BASOPHIL % 0.7 % (0.0-0.4); Basophil (Absolute #) 0.04 (0-0.4); Eosinophil % 3.5 % (0.00-5.0); Granulocyte Absolute (ANC) 3.76 (1.4-6.9); Granulocytes % 65.6 % (36.0-66.0); Hematocrit 38.2 % (35-47); Hemoglobin 12.7 gm/dl (12.0-16.0); Lymphocyte (Absolute #) 1.29 (1.0-4.6); Lymphocytes % 22.5 % (24.0-44.0); Mean Cell Volume 88.6 fl (78-100); Mean Corpuscular Hemoglobin 29.5 pg (26-32); Mean Corpuscular Hgb Concent. 33.2 g/dl (32-36); Mean Platelet Volume 8.7 fl (6-9.5); Monocyte (Absolute #) 0.44 (0.0-1.3); Monocytes % 7.7 % (0.0-12.0); Platelet Count 294 K/mm3 (150-450); Red Blood Count 4.31 M/mm3 (4.1-5.4); Red Cell Distribution Width 14.5 % (11.5-14.0); White Blood Count 5.7 K/mm3 (4.0-10.5)
[2019-03-03 20:58] LABS: ALBUMIN 4.4 g/dL (3.5-5.0); ALKALINE PHOSPHATASE 77 U/L (38-126); ANION GAP 14.2 MEQ/L (5-15); BLOOD UREA NITROGEN 14 mg/dL (7-17); CHLORIDE 105 mmol/L (98-107); Calcium 9.5 mg/dL (8.4-10.2); Carbon Dioxide 27 mmol/L (22-30); Creatinine 1 0.54 mg/dL (0.52-1.04); Glucose 95 mg/dL (74-106); Potassium 4.7 mmol/L (3.5-5.1); SGOT/AST 20 U/L (14-36); SGPT/ALT 18 U/L (0-35); SODIUM 141 mmol/L (137-145); Total Protein 7.7 g/dL (6.3-8.2)
[2019-03-03 21:01] LABS: Appearance CLEAR (CLEAR); Bacteria RARE /HPF (NEGATIVE); Bilirubin NEGATIVE (NEGATIVE); Blood NEGATIVE Ery/ul (0-5); Epithelial Cells RARE /HPF (FEW); Glucose NEGATIVE (NEGATIVE); Ketones NEGATIVE (NEGATIVE); Leukocyte Esterase NEGATIVE (NEGATIVE); Mucus SLIGHT /HPF (NEGATIVE); Nitrite NEGATIVE (NEGATIVE); Protein,Urine Dip NEGATIVE (Negative); RBC 0-2 /HPF (0-2); Specific Gravity 1.002 (1.005-1.025); Urobilinogen NEGATIVE mg/dL (0-1)
[2019-03-03 21:14] LABS: Amphetamine,Urine NEGATIVE (NEGATIVE); Barbiturate,Urine NEGATIVE (NEGATIVE); Benzodiazepine,Urine NEGATIVE (NEGATIVE); Cocaine,Urine NEGATIVE (NEGATIVE); Methadone,Urine NEGATIVE (NEGATIVE); Opiate,Urine NEGATIVE (NEGATIVE); PCP,Urine NEGATIVE (NEGATIVE); THC,Urine NEGATIVE (NEGATIVE)
[2019-03-03 21:15] VITALS: PULSE 96; O2SAT 100
[2019-03-03 22:08] VITALS: BP 120/77
[2019-03-05 12:02] LABS: HEPATITIS B VIRUS CORE TOT AB Non Reactive (Non Reactive); HEPATITIS C VIRUS ANTIBODY Non Reactive (Non Reactive); Hepatitis B Surface Antigen Non Reactive (Non Reactive)
== END 2019-03-03 22:21 | disposition home or self-care (01) ==
LOC: ED 20:17 → EEVIPCON 20:17 → ED 22:21
DX: F41.9 Anxiety disorder, unspecified (principal); K42.9 Umbilical hernia without obstruction or gangrene; R20.2 Paresthesia of skin
CPT/HCPCS: 36415; 80053; 80074; 80307; 81001; 84703; 85025; 99283

== ENCOUNTER 2020-05-03 12:11 | Emergency (ER) | payer MEDICAID, OTHER ==
--- NOTE | 2020-05-03 12:23 | ERPHSYRPT ---
- History of Present Illness Time Seen by Provider: 05/03/20 12:18 Historian: patient Exam Limitations: clinical condition Physician History: Is a 29-year-old white female who presents in extreme anxiety feeling as though she is having a stroke and possible myocardial infarction. Patient has no prior history of this. She denies illicit drug use. Patient states his symptoms began approximately 30 minutes prior to arrival. Patient states she did take a drink of fluid from some when she did not know prior to arrival here. Patient also thinks that she might be dehydrated. Patient states she has had some nausea and vomiting prior to arrival. She states she does take medications. Patient states that chest pain is centrally located she has numbness of her face and numbness of her left arm. Patient states she is homeless. Patient admits to marijuana use and use of methamphetamines. Timing/Duration: today Quality: aching, other (Numbness) Location: substernal, central Chest Pain Radiation: arm (Left side) Severity of Pain-Max: moderate Severity of Pain-Current: moderate Modifying Factors: Improves With: nothing Prior Chest Pain/Cardiac Workup: no prior chest pain Nitro Today/Relief: no nitro taken today Aspirin Treatment Today: 325 mg x 1 Allergies/Adverse Reactions: banana Allergy (Verified 05/03/20 12:23) kiwi Allergy (Verified 05/03/20 12:23) melon Allergy (Verified 05/03/20 12:23) nut - unspecified Allergy (Verified 05/03/20 12:23) pesticide Allergy (Verified 05/03/20 12:23) Hx Tetanus, Diphtheria Vaccination/Date Given: Yes Hx Influenza Vaccination/Date Given: Yes Hx Pneumococcal Vaccination/Date Given: No Travel Risk - International Travel Have you traveled outside of the country in past 3 weeks: No - Coronavirus Screening Are you exhibiting any of the following symptoms?: No Close contact with a COVID-19 positive Pt in past 14-21 Days: No - Review of Systems Constitutional: No Symptoms Eyes: No Symptoms Ears, Nose, & Throat: No Symptoms Respiratory: No Symptoms Cardiac: Chest Pain Abdominal/Gastrointestinal: No Symptoms Genitourinary Symptoms: No Symptoms Musculoskeletal: No Symptoms Skin: No Symptoms Neurological: Parasthesia Psychological: No Symptoms Endocrine: No Symptoms Hematologic/Lymphatic: No Symptoms Immunological/Allergic: No Symptoms All Other Systems: Reviewed and Negative - Past Medical History Pertinent Past Medical History: Yes Neurological History: No Pertinent History ENT History: No Pertinent History Cardiac History: No Pertinent History Respiratory History: Asthma Endocrine Medical History: No Pertinent History Musculoskeletal History: No Pertinent History GI Medical History: GERD History: No Pertinent History Psycho-Social History: Anxiety, Bipolar, Depression, Other Female Reproductive Disorders: No Pertinent History Other Medical History: ptsd - Past Surgical History Past Surgical History: Yes Neuro Surgical History: No Pertinent History Cardiac: No Pertinent History Respiratory: No Pertinent History Gastrointestinal: No Pertinent History Genitourinary: No Pertinent History Musculoskeletal: No Pertinent History Female Surgical History: Lumpectomy, Other Other Surgical History: fallopian tubes removed - Social History Smoking Status: Current every day smoker How long have you smoked: 6 years Exposure to second hand smoke: Yes Drug Use: marijuana, methamphetamines Patient Lives Alone: No - Nursing Vital Signs Nursing Vital Signs: Initial Vital Signs Pulse Rate 129 H 05/03/20 12:14 Respiratory Rate 17 05/03/20 12:14 Blood Pressure 132/93 05/03/20 12:14 O2 Sat by Pulse Oximetry 100 05/03/20 12:14 - Physical Exam General Appearance: mild distress, alert, anxiety Eye Exam: PERRL/EOMI, eyes nml inspection Ears, Nose, Throat Exam: normal ENT inspection, dry mucous membranes Neck Exam: normal inspection, non-tender, supple, full range of motion Respiratory Exam: normal breath sounds, lungs clear, airway intact, No chest tenderness, No respiratory distress Cardiovascular Exam: tachycardia Gastrointestinal/Abdomen Exam: soft, normal bowel sounds, No tenderness Pelvic Exam: not done Rectal Exam: not done Back Exam: normal inspection, normal range of motion, No CVA tenderness, No vertebral tenderness Extremity Exam: normal inspection, normal range of motion, pelvis stable Neurologic Exam: alert, oriented x 3, face painter II-XII nml as tested, agitation, intoxicated appearance Skin Exam: normal color, warm, dry Lymphatic Exam: No adenopathy SpO2 Interpretation: normal O2 Delivery: Room Air - Course Nursing assessment & vital signs reviewed: Yes EKG Interpreted by Me: RATE (129), Sinus Tach, NORMAL QRS, Other (No acute ischemic changes. No comparison EKG available.) Ordered Tests: Active Orders 24 hr Category Date Time Status Ben Day Artist STAT Care 05/03/20 12:24 Active Clean Catch Urine Specimen STAT Care 05/03/20 12:23 Active EKG-ER Only STAT Care 05/03/20 12:23 Active IV Insertion STAT Care 05/03/20 12:23 Active Pulse Oximetry (ED) STAT Care 05/03/20 12:23 Active CHEST 1 VIEW (PORTABLE) Stat Exams 05/03/20 12:24 Completed HEAD WITHOUT CONTRAST [CT] Stat Exams 05/03/20 12:38 Completed ACETAMINOPHEN Stat Lab 05/03/20 12:20 Completed CBC W DIFF Stat Lab 05/03/20 12:20 Completed CMP Stat Lab 05/03/20 12:20 Completed ETHYL ALCOHOL Stat Lab 05/03/20 12:20 Completed HCG,QUALITATIVE URINE Stat Lab 05/03/20 13:56 Completed SALICYLATE Stat Lab 05/03/20 12:20 Completed TROPONIN Q3H Lab 05/03/20 12:20 Completed TROPONIN Q3H Lab 05/03/20 15:30 Ordered TROPONIN Q3H Lab 05/03/20 18:30 Ordered TROPONIN Q3H Lab 05/03/20 21:30 Ordered TROPONIN Q3H Lab 05/04/20 00:30 Ordered UA W/RFX UR CULTURE Stat Lab 05/03/20 12:48 Completed Urine Triage Profile Stat Lab 05/03/20 12:27 Completed Medication Summary Discontinued Medications Generic Name Dose Route Start Last Admin Trade Name Freq PRN Reason Stop Dose Admin Aspirin 324 mg 05/03/20 12:23 05/03/20 12:41 Baby Aspirin 81 Mg Chew PO 05/03/20 12:24 324 mg STAT ONE Administration Aspirin Confirm 05/03/20 12:39 Baby Aspirin 81 Mg Chew Administered 05/03/20 12:40 Dose 324 mg .ROUTE .STK-MED ONE Sodium Chloride 1,000 mls @ 999 mls/hr 05/03/20 12:23 05/03/20 12:45 Sodium Chloride 0.9% 1000 Ml IV 05/03/20 13:23 999 mls/hr .Q1H1M STA Administration Sodium Chloride Confirm 05/03/20 12:44 Sodium Chloride 0.9% 1000 Ml Administered 05/03/20 12:45 Dose 1,000 mls @ ud .ROUTE .STK-MED ONE Lorazepam 1 mg 05/03/20 12:23 05/03/20 12:41 Ativan 2 Mg/1 Ml Vial IV 05/03/20 12:24 1 mg STAT ONE Administration Lorazepam Confirm 05/03/20 12:43 Ativan 2 Mg/1 Ml Vial Administered 05/03/20 12:44 Dose 2 mg .ROUTE .STK-MED ONE Methylprednisolone Sodium Succinate 125 mg 05/03/20 12:26 05/03/20 12:46 Solu-Medrol 125 Mg IV 05/03/20 12:27 125 mg STAT ONE Administration Methylprednisolone Sodium Succinate Confirm 05/03/20 12:26 Solu-Medrol 125 Mg Administered 05/03/20 12:27 Dose 125 mg .ROUTE .STK-MED ONE Lab/Rad Data: Laboratory Result Diagrams 05/03/20 12:20 05/03/20 12:20 Laboratory Results 05/03/20 05/03/20 05/03/20 Range/Units 13:56 12:48 12:27 WBC (4.0-10.5) K/mm3 RBC (4.1-5.4) M/mm3 Hgb (12.0-16.0) gm/dl Hct (35-47) % MCV (78-100) fl MCH (26-32) pg MCHC (32-36) g/dl RDW (11.5-14.0) % Plt Count (150-450) K/mm3 MPV (7.5-11.0) fl Gran % (36.0-66.0) % Eos # (Auto) (0-0.5) Absolute Lymphs (auto) (1.0-4.6) Absolute Monos (auto) (0.0-1.3) Lymphocytes % (24.0-44.0) % Monocytes % (0.0-12.0) % Eosinophils % (0.00-5.0) % Basophils % (0.0-0.4) % Absolute Granulocytes (1.4-6.9) Basophils # (0-0.4) Sodium (137-145) mmol/L Potassium (3.5-5.1) mmol/L Chloride (98-107) mmol/L Carbon Dioxide (22-30) mmol/L Anion Gap (5-15) MEQ/L BUN (7-17) mg/dL Creatinine (0.52-1.04) mg/dL Estimated GFR ML/MIN Glucose (74-106) mg/dL Calcium (8.4-10.2) mg/dL Total Bilirubin (0.2-1.3) mg/dL AST (14-36) U/L ALT (0-35) U/L Alkaline Phosphatase (38-126) U/L Troponin I (0.000-0.034) ng/mL Serum Total Protein (6.3-8.2) g/dL Albumin (3.5-5.0) g/dL Urine Color STRAW (YELLOW) Urine Appearance CLEAR (CLEAR) Urine pH 9.0 (5-6) Ur Specific [place] 1.005 (1.005-1.025) Urine Protein NEGATIVE (Negative) Urine Ketones TRACE (NEGATIVE) Urine Blood NEGATIVE (0-5) Justino/ul Urine Nitrite NEGATIVE (NEGATIVE) Urine Bilirubin NEGATIVE (NEGATIVE) Urine Urobilinogen NEGATIVE (0-1) mg/dL Ur Leukocyte Esterase NEGATIVE (NEGATIVE) Urine WBC (Auto) 0-2 (0-5) /HPF Urine RBC (Auto) NONE (0-2) /HPF U Epithel Cells (Auto) RARE (FEW) /HPF Urine Bacteria (Auto) FEW (NEGATIVE) /HPF Urine Culture Reflexed NO (NO) Urine Glucose NEGATIVE (NEGATIVE) mg/dL Urine HCG, Qual NEGATIVE (Negative) Salicylates (2-20) mg/dL Urine Opiates Level NEGATIVE (NEGATIVE) Ur Methadone NEGATIVE (NEGATIVE) Acetaminophen (10-30) ug/ml Urine Barbiturates NEGATIVE (NEGATIVE) Ur Phencyclidine (PCP) NEGATIVE (NEGATIVE) Urine Amphetamine POSITIVE (NEGATIVE) U Benzodiazepine Level NEGATIVE (NEGATIVE) Urine Cocaine NEGATIVE (NEGATIVE) Urine Marijuana (THC) POSITIVE (NEGATIVE) Ethyl Alcohol (0-10) mg/dL Slides for Path Review 05/03/20 05/03/20 05/03/20 Range/Units 12:20 12:20 12:20 WBC 15.6 H (4.0-10.5) K/mm3 RBC 4.31 (4.1-5.4) M/mm3 Hgb 12.2 (12.0-16.0) gm/dl Hct 36.4 (35-47) % MCV 84.5 (78-100) fl MCH 28.3 (26-32) pg MCHC 33.5 (32-36) g/dl RDW 14.2 H (11.5-14.0) % Plt Count 385 (150-450) K/mm3 MPV 9.4 (7.5-11.0) fl Gran % 71.3 H (36.0-66.0) % Eos # (Auto) 0.08 (0-0.5) Absolute Lymphs (auto) 2.82 (1.0-4.6) Absolute Monos (auto) 1.58 H (0.0-1.3) Lymphocytes % 18.0 L (24.0-44.0) % Monocytes % 10.1 (0.0-12.0) % Eosinophils % 0.5 (0.00-5.0) % Basophils % 0.1 (0.0-0.4) % Absolute Granulocytes 11.14 H (1.4-6.9) Basophils # 0.02 (0-0.4) Sodium 137 (137-145) mmol/L Potassium 4.1 (3.5-5.1) mmol/L Chloride 100 (98-107) mmol/L Carbon Dioxide 25 (22-30) mmol/L Anion Gap 15.9 H (5-15) MEQ/L BUN 8 (7-17) mg/dL Creatinine 0.65 (0.52-1.04) mg/dL Estimated GFR > 60.0 ML/MIN Glucose 106 (74-106) mg/dL Calcium 9.9 (8.4-10.2) mg/dL Total Bilirubin 0.80 (0.2-1.3) mg/dL AST 26 (14-36) U/L ALT 20 (0-35) U/L Alkaline Phosphatase 94 (38-126) U/L Troponin I < 0.012 (0.000-0.034) ng/mL Serum Total Protein 7.8 (6.3-8.2) g/dL Albumin 4.6 (3.5-5.0) g/dL Urine Color (YELLOW) Urine Appearance (CLEAR) Urine pH (5-6) Ur Specific [place] (1.005-1.025) Urine Protein (Negative) Urine Ketones (NEGATIVE) Urine Blood (0-5) Justino/ul Urine Nitrite (NEGATIVE) Urine Bilirubin (NEGATIVE) Urine Urobilinogen (0-1) mg/dL Ur Leukocyte Esterase (NEGATIVE) Urine WBC (Auto) (0-5) /HPF Urine RBC (Auto) (0-2) /HPF U Epithel Cells (Auto) (FEW) /HPF Urine Bacteria (Auto) (NEGATIVE) /HPF Urine Culture Reflexed (NO) Urine Glucose (NEGATIVE) mg/dL Urine HCG, Qual (Negative) Salicylates < 1.0 L (2-20) mg/dL Urine Opiates Level (NEGATIVE) Ur Methadone (NEGATIVE) Acetaminophen < 10 L (10-30) ug/ml Urine Barbiturates (NEGATIVE) Ur Phencyclidine (PCP) (NEGATIVE) Urine Amphetamine (NEGATIVE) U Benzodiazepine Level (NEGATIVE) Urine Cocaine (NEGATIVE) Urine Marijuana (THC) (NEGATIVE) Ethyl Alcohol < 10 (0-10) mg/dL Slides for Path Review YES - Departure Departure Disposition: Home Clinical Impression: Dehydration, mild, Methamphetamine abuse, Marijuana intoxication, Anxiety Condition: Stable Critical Care Time: No Referrals: CATRACHITA ADAMS [Primary Care Provider] - Additional Instructions: Do not use marijuana, methamphetamines or other illicit drugs. Drink plenty of fluids. Follow-up with your primary care physician for further management.
[2020-05-03] MEDS ORDERED: solu-MEDROL 125 MG ONE (12:26)
[2020-05-03 12:37] LABS: Absolute Neutrophil Ct (ANC) 11.14 (1.4-6.9); BASOPHIL % 0.1 % (0.0-0.4); Basophil (Absolute #) 0.02 (0-0.4); Eosinophil % 0.5 % (0.00-5.0); Eosinophil (Absolute #) 0.08 (0-0.5); Hematocrit 36.4 % (35-47); Hemoglobin 12.2 gm/dl (12.0-16.0); Lymphocyte (Absolute #) 2.82 (1.0-4.6); Mean Cell Volume 84.5 fl (78-100); Mean Corpuscular Hemoglobin 28.3 pg (26-32); Mean Corpuscular Hgb Concent. 33.5 g/dl (32-36); Mean Platelet Volume 9.4 fl (7.5-11.0); Monocyte (Absolute #) 1.58 (0.0-1.3); Monocytes % 10.1 % (0.0-12.0); Neutrophil % 71.3 % (36.0-66.0); Platelet Count 385 K/mm3 (150-450); Red Blood Count 4.31 M/mm3 (4.1-5.4); Red Cell Distribution Width 14.2 % (11.5-14.0); White Blood Count 15.6 K/mm3 (4.0-10.5)
[2020-05-03] MEDS ORDERED: BABY ASPIRIN 81 MG CHEW ONE (12:39)
[2020-05-03] MEDS: BABY ASPIRIN 81 MG CHEW PO ONE (12:41)
[2020-05-03] MEDS: Ativan 2 MG/1 ML VIAL IV ONE (12:41)
[2020-05-03] MEDS ORDERED: Ativan 2 MG/1 ML VIAL ONE (12:43)
[2020-05-03] MEDS ORDERED: Sodium Chloride 0.9% 1000 ML 1,000 ML ONE (12:44)
[2020-05-03] MEDS: Sodium Chloride 0.9% 1000 ML 1,000 ML IV STA (12:45)
[2020-05-03] MEDS: solu-MEDROL 125 MG IV ONE (12:46)
--- NOTE | 2020-05-03 12:47 | XRAY ---
Indication: Chest pain. Comparison: December 18, 2018. Portable chest again demonstrates normal heart and lungs. Bony thorax intact. No new/acute findings.
[2020-05-03 12:55] LABS: ALBUMIN 4.6 g/dL (3.5-5.0); ALKALINE PHOSPHATASE 94 U/L (38-126); ANION GAP 15.9 MEQ/L (5-15); BLOOD UREA NITROGEN 8 mg/dL (7-17); CHLORIDE 100 mmol/L (98-107); Calcium 9.9 mg/dL (8.4-10.2); Carbon Dioxide 25 mmol/L (22-30); Creatinine 1 0.65 mg/dL (0.52-1.04); Glucose 106 mg/dL (74-106); Potassium 4.1 mmol/L (3.5-5.1); SGOT/AST 26 U/L (14-36); SGPT/ALT 20 U/L (0-35); SODIUM 137 mmol/L (137-145); Total Protein 7.8 g/dL (6.3-8.2)
[2020-05-03 13:04] LABS: Appearance CLEAR (CLEAR); Bacteria FEW /HPF (NEGATIVE); Bilirubin NEGATIVE (NEGATIVE); Blood NEGATIVE Ery/ul (0-5); Epithelial Cells RARE /HPF (FEW); Glucose NEGATIVE (NEGATIVE); Ketones TRACE (NEGATIVE); Leukocyte Esterase NEGATIVE (NEGATIVE); Nitrite NEGATIVE (NEGATIVE); Protein,Urine Dip NEGATIVE (Negative); Specific Gravity 1.005 (1.005-1.025); Urobilinogen NEGATIVE mg/dL (0-1); WBC 0-2 /HPF (0-5)
[2020-05-03 13:06] LABS: ACETAMINOPHEN < 10 ug/ml (10-30); ETHYL ALCOHOL < 10 mg/dL (0-10); SALICYLATE < 1.0 mg/dL (2-20)
[2020-05-03 13:48] LABS: Amphetamine,Urine POSITIVE (NEGATIVE); Barbiturate,Urine NEGATIVE (NEGATIVE); Benzodiazepine,Urine NEGATIVE (NEGATIVE); Cocaine,Urine NEGATIVE (NEGATIVE); Methadone,Urine NEGATIVE (NEGATIVE); Opiate,Urine NEGATIVE (NEGATIVE); PCP,Urine NEGATIVE (NEGATIVE); THC,Urine POSITIVE (NEGATIVE)
--- NOTE | 2020-05-03 14:07 | XRAY ---
Indication: Change in mental status. Possible overdose. Multiple contiguous axial images obtained through the head without contrast. Comparison: May 14, 2012. Again normal appearing brain parenchyma, ventricles, and bony calvarium. Visualized paranasal sinuses and mastoid air cells are clear. Impression: Continued normal CT head without contrast exam.
[2020-05-03 14:16] LABS: Slide Review 1 YES
[2020-05-03 16:43] VITALS: BP 125/86; PULSE 110; O2SAT 99
== END 2020-05-03 17:24 | disposition home or self-care (01) ==
LOC: ED 12:11
DX: E86.0 Dehydration (principal); F15.10 Other stimulant abuse, uncomplicated; F12.929 Cannabis use, unspecified with intoxication, unspecified; F41.9 Anxiety disorder, unspecified
CPT/HCPCS: 36000; 36415; 70450; 71045; 80053; 80307; 81001; 84484; 84703; 85025; 93005; 93041; 94760; 96374; 96375; 99285; J2060; J2930; A9270-GY; G0480